=== PATIENT | male | born 1965 | race African-American/Black ===

== ENCOUNTER → 2021-01-30 | Outpatient (CLI) | payer BC ==
--- NOTE | 2021-01-30 15:46 | Diagnostic Imaging Report ---
CT Lung Screening INDICATION: 37 pack year smoking history. Current smoker. TECHNIQUE: Noncontrast, low-dose CT imaging performed according to the lung cancer screening protocol. Auto Exposure Controls were utilize during the CT exam to meet ALARA standards for radiation dose reduction. COMPARISON: None FINDINGS: Ajqj-hl-kdduhpvg centrilobular emphysema and scattered scarring. No suspicious pulmonary nodule or mass. No pleural effusion or pneumothorax. No endobronchial lesions. Normal heart size. No pericardial effusion. No mediastinal, hilar or axillary lymphadenopathy. Thyromegaly. Partially visualized cysts in both kidneys. No acute osseous findings. IMPRESSION: 1. No actionable findings. Recommend continue annual screening with low-dose chest CT in 12 months. 2. Qisj-hb-nduhcvdl emphysematous changes with scattered scarring. 3. Thyromegaly. LUNG-RADS CATEGORY:1. MODIFIER: None. Dictated by: Dictated on workstation # [id number]
== END ==
LOC: RAD 09:45
PROVIDERS: ATTEND Nurse Practitioner
DX: Z12.2 Encounter for screening for malignant neoplasm of respiratory organs (principal); J43.9 Emphysema, unspecified; E01.0 Iodine-deficiency related diffuse (endemic) goiter; F17.210 Nicotine dependence, cigarettes, uncomplicated
CPT/HCPCS: 71271

== ENCOUNTER → 2021-03-15 | Outpatient (CLI) | payer BC ==
[~2021-03-15] MED LIST: RT-ALBUTEROL SULF 2.5 MG/3 ML PRE-MIX VIAL INH ONE
== END ==
LOC: RT 03-14 09:30
PROVIDERS: ATTEND Nurse Practitioner Family
DX: Z13.83 Encounter for screening for respiratory disorder NEC (principal); J43.2 Centrilobular emphysema; F17.200 Nicotine dependence, unspecified, uncomplicated
CPT/HCPCS: 94060; 94726; 94729

== ENCOUNTER → 2021-05-12 | Outpatient (CLI) | payer BC ==
[~2021-05-12] MED LIST changes: +LIDOCAINE 1% INJ 20 ML 20 ML VIAL INJ ONE; -RT-ALBUTEROL SULF 2.5 MG/3 ML PRE-MIX VIAL INH ONE
== END ==
LOC: RAD 11:00
PROVIDERS: ATTEND Nurse Practitioner
DX: E01.0 Iodine-deficiency related diffuse (endemic) goiter (principal); E04.2 Nontoxic multinodular goiter

== ENCOUNTER → 2022-01-31 | Outpatient (CLI) | payer OTHER ==
--- NOTE | 2022-01-31 12:51 | Diagnostic Imaging Report ---
EXAMINATION: CT chest without contrast (lung screening). TECHNIQUE: Multiple contiguous axial images were obtained through the chest without the use of intravenous contrast according to lung cancer screening protocol. All CT scans use one or more of the following dose optimizing techniques: automated exposure control, MA and/or KvP adjustment based on patient size and exam type or iterative reconstruction. HISTORY: 38 pack year history of smoking. COMPARISON: 01/30/2021 FINDINGS: Thyroid: Margin of the thyroid gland. Mediastinum: Heart size is normal without significant pericardial effusion. The aorta is normal in caliber. No suspicious lymphadenopathy. Lungs and airways: The lungs are clear without consolidation, pleural effusion, or pneumothorax. No suspicious pulmonary nodule. Mild bronchial wall thickening. Upper abdomen: Renal cysts are present which require no follow-up. Musculoskeletal: No suspicious osseous lesion or compression fracture. IMPRESSION: 1. No suspicious pulmonary nodules. Recommend continued annual low-dose CT screening. LUNG-RADS CATEGORY: 1 MODIFIER: None Dictated by: Dictated on workstation # [id number]
== END ==
LOC: RAD 11:37
PROVIDERS: ATTEND Nurse Practitioner Family
DX: Z12.2 Encounter for screening for malignant neoplasm of respiratory organs (principal); J43.2 Centrilobular emphysema; F17.210 Nicotine dependence, cigarettes, uncomplicated
CPT/HCPCS: 71271

== ENCOUNTER 2022-05-01 16:17 | Emergency (ER) | payer OTHER ==
[~2022-05-01] VITALS: Ht 167 cm; Wt 51.0 kg
--- NOTE | 2022-05-01 16:53 | ED Integumentary General ---
General Chief Complaint: Laceration Stated Complaint: LEG INJURY Nursing Triage Note: ARRIVED VIA AMB TO ROOM 03 WITH A SIGNIFICANT LACERATION TO RIGHT UPPER LEG FROM A CIRCULAR SAW. AT THIS TIME PT REFUSES AN IV AND REFUSES A TETANUS SHOT. DR KNOX BROUGHT TO THE ROOM. Source: patient Exam Limitations: no limitations (LIZ KNOX MD) History of Present Illness Date Seen by Provider: May 01, 2022 Time Seen by Provider: 16:45 Initial Comments Patient is a 56-year-old male who presents to the emergency department with a large laceration down the right lateral thigh. He was using a circular saw and it went onto his thigh. He states his last tetanus shot was exactly 5 years ago. Moderate pain. No distal numbness tingling or weakness. Intact function to the lower extremity able to flex and extend the right lower leg without difficulty. Normal sensation. He is not a diabetic. He declines an IV and declines updating tetanus. No other complaints of illness or injury All other review of systems reviewed and negative except as stated. Timing/Duration: just prior to arrival Severity: severe Location: extremities (RLE) Possible Cause: other (circular saw) Associated Symptoms: denies symptoms (LIZ KNOX MD) Allergies and Home Medications Allergies Coded Allergies: No Known Drug Allergies (Unverified , 03/15/21) Patient Home Medication List Home Medication List Reviewed: Yes (LIZ KNOX MD) Home Medication List Reviewed: Yes (DELORES KENYON) Cephalexin (Cephalexin) 500 Mg Tablet, 500 MG PO QID Prescribed by: SILVIO RYDER on 05/01/222132 Hydrocodone/Acetaminophen (Hydrocodone-Acetamin 5-325 mg) 5 Mg-325 Mg Tablet, 1 TAB PO Q4H PRN for PAIN-MODERATE (5-7) Prescribed by: SILVIO RYDER on 05/01/222133 Review of Systems Review of Systems Constitutional: see HPI EENTM: no symptoms reported Respiratory: no symptoms reported Cardiovascular: no symptoms reported Musculoskeletal: other (leg pain) Skin: other (laceration) Psychiatric/Neurological: Anxiety (LIZ KNOX MD) All Other Systems Reviewed Negative Unless Noted: Yes (LIZ KNOX MD) Past Xloojfa-Oocylj-Iqlore Hx Patient Social History Smoking Status: Current Everyday Smoker Substance use?: Yes Substance type: Marijuana Alcohol Use?: Yes Alcohol Frequency: Couple times a week (LIZ KNOX MD) Physical Exam Vital Signs Vital Signs - First Documented 05/01/22 16:35 Temp 36.3 Pulse 101 Resp 16 B/P (MAP) 143/97 (112) Pulse Ox 100 O2 Delivery Room Air (DELORES KENYON) Vital Signs Capillary Refill : Less Than 3 Seconds (LIZ KNOX MD) General Appearance: WD/WN, mild distress HEENT: PERRL/EOMI Cardiovascular: regular rate, rhythm Respiratory: lungs clear, normal breath sounds, no respiratory distress, no accessory muscle use Extremities: normal range of motion, no pedal edema Neurologic/Psychiatric: alert, normal mood/affect, oriented x 3, other (no motor or sensory deficit) Skin: normal color, warm/dry, other (16 cm laceration down the anterior lateral aspect of the distal right thigh. Laceration involves what appears to be the muscle belly of the rectus femoris. Some active bleeding noted no pulsatile bleeding. No obvious foreign body.) (LIZ KNOX MD) Skin: other (16 cm laceration down the anterior lateral aspect of the distal right thigh. Laceration involves what appears to be the muscle belly of the rectus femoris. Some active bleeding noted no pulsatile bleeding. No obvious foreign body.) (DELORES KENYON) Procedures/Interventions Wound Location: Lower Extremities Other Wound Location right leg Wound Length (cm): 16 Wound's Depth, Shape: into muscle, irregular, contused tissue, sub Q Wound Explored: contaminated Irrigated w/ Saline (ccs): 6000 Betadine Prep?: Yes Anesthesia: 1% Lidocaine Volume Anesthetic (ccs): 30 Wound Debrided: minimal Suture: Ethlion, Vicryl Suture Size: 2-0, 4-0 Number of Sutures: 31 Layer Closure?: 4 Number Deep Layer Sutures: 3 Sterile Dressing Applied?: Yes Progress 8 Vicryl 2-0 sutures were placed (DELORES KENYON) Progress/Results/Core Measures Results/Orders My Orders Orders - DELORES KENYON Lidocaine 1% Inj 20 Ml (Xylocaine 1% Inj (05/01/22 18:00) Cephalexin Capsule (Keflex Capsule) (05/01/22 21:30) (DELORES KENYON) Medications Given in ED (DELORES KENYON) Vital Signs/I&O 05/01/22 05/01/22 05/01/22 16:35 17:17 21:52 Temp 36.3 36.3 36.6 Pulse 101 89 Resp 16 16 B/P (MAP) 143/97 (112) 135/89 Pulse Ox 100 100 O2 Delivery Room Air Room Air (DELORES KENYON) Blood Pressure Mean: 112 Departure Communication (PCP) Patient with a extensive laceration to the right leg above the right knee. Laceration measures about 16 cm that is jagged that tracks from the center of the mid thigh to the right lateral knee. X-rays was negative for fracture. Patient believes he is up-to-date on his tetanus but once again it was recommended for a updated tetanus as he was not sure but patient refused anything IM or IV. Recommended a dose of Ancef but patient once again refused anything IV or IM.. Rectus femoris muscle involvement with a 2 to 3 cm laceration through the joint capsule to the right lateral knee. Took over care from Dr. Knox for repair of the laceration. General surgery was contacted before I took over care regarding the laceration secondary for concerns of contaminated wound needing OR irrigation and repair. It was thought that this could be repaired here in the ER vs going to the OR. Prepped the laceration and right leg in a sterile fashion. Extensive irrigation up to 5000 mls of normal saline with Shur-Clens. Sterile gloves were used and prepped the right leg with iodine and draped in a sterile fashion. Took multiple attempts before patient would allow me to use lidocaine. Used up to 30 ml of lidocaine to anesthetize the laceration. Used 8 2-0 absorbable Vicryl single stitch to repair the surface of the joint capsule. Jagged laceration through the vastus lateralis and rectus femoris. 10 2-0 Vicryl sutures were placed by horizontal mattress into the muscle tissue to provide stability as this has high tension. Used 2-0 Vicryl running stitches to approximate the fascia and adipose. Recommended sallie patient refused sallie. I was able to use 4-0 Ethilon single stitch through the entire length of the laceration. Attempted to use a stronger stitch of 2-0 but patient states this hurt too much and attempted to use more lidocaine but patient refused. Successful closure but concern due to the jagged edge that approximation may be compromised. Had to perform some debridement to help approximate the tissue. Patient did agree to oral Keflex here and will discharge with Keflex prophylactically. I Did discharge with pain medication. Brandon wrap was applied over the wound. Patient was placed in a knee immobilizer and provided crutches. Discussed the importance for following up with orthopedic within 1 week for reevaluation. Discussed healing may take up to 6 to 12 weeks. The sutures that are superficial will need to be removed in 2 weeks. I would prefer patient to follow-up with orthopedic in that time regarding this due to the extensive repair of his leg. This was provided in discharge. Discussed with patient if any redness or swelling or increase in size or pain he needs to return back to ED. (DELORES KENYON) Impression Primary Impression: Leg laceration Disposition: 01 HOME, SELF-CARE Condition: Stable Departure-Patient Inst. Decision time for Depature: 21:32 (DELORES KENYON) Referrals: [facility] (PCP/Family) Primary Care Physician THONY TODD MD Patient Instructions: Laceration Repair With Stitches ED Add. Discharge Instructions: Need to remove the sutures in 14 days. Need to follow-up with orthopedic in 1 week for reevaluation. If increased redness or swelling to return back to ED All discharge instructions reviewed with patient and/or family. Voiced under standing. Scripts Hydrocodone/Acetaminophen (Hydrocodone-Acetamin 5-325 mg) 5 Mg-325 Mg Tablet 1 TAB PO Q4H PRN for PAIN-MODERATE (5-7), #12 TAB Prov: DELORES KENYON 05/01/22 Cephalexin (Cephalexin) 500 Mg Tablet 500 MG PO QID for 7 Days, #28 TAB Prov: DELORES KENYON 05/01/22 Work/School Note: Work Release Form Date Seen in the Emergency Department: May 01, 2022 Return to Work: May 16, 2022 ATTENDING PHYSICIAN NOTE: I WAS PHYSICALLY PRESENT ER PHYSICIAN, BUT I WAS NOT INVOLVED IN ANY DECISION MAKING OR ANY CARE OF THIS PATIENT, AND I AM NOT COLLABORATING PHYSICIAN. (RORY JUSTICE DO) LIZ KNOX MD May 01, 2022 16:53 DELORES KENYON May 01, 2022 21:34 RORY JUSTICE DO May 02, 2022 05:33
[2022-05-01] MEDS ORDERED: LIDOCAINE 1% INJ 20 ML VIAL INJ ONE ×2 (17:00→18:00)
--- NOTE | 2022-05-01 17:12 | Diagnostic Imaging Report ---
EXAMINATION: Right femur, two or more views. HISTORY: Circular saw injury. COMPARISON: None available. FINDINGS: There are vascular calcifications. There is cortical irregularity of the distal right femur concerning for a fracture. This is at the edge of the [id number]-[id number]. There also appears to be gas in the soft tissues. IMPRESSION: 1. Cortical irregularity and soft tissue gas in the distal right femur concerning for a fracture and soft tissue injury; dedicated knee radiographs recommended. Dictated by: Dictated on workstation # [id number]
--- NOTE | 2022-05-01 17:37 | Diagnostic Imaging Report ---
INDICATION: Circular saw injury to the right thigh. TIME OF EXAM: 5:17 p.m. FINDINGS: Three views of the right knee were obtained. There appears to be a soft tissue injury of the anterior tissues with soft tissue gas present. Alignment at the knee is normal. The femur as well as the proximal tibia and fibula appear to be intact. No fractures are seen. No definite radiopaque soft tissue foreign bodies are identified. IMPRESSION: Soft tissue injury. No acute bony abnormality is detected. Dictated by: Dictated on workstation # [id number]
[2022-05-01] MEDS ORDERED: LORazepam 1 MG (ATIVAN) TAB PO ONE (18:00)
[2022-05-01] MEDS ORDERED: CEPHALEXIN 250 MG (KEFLEX) CAP PO STA (21:30)
[2022-05-01] MEDS ORDERED: ACHD5005 PO (21:33)
[2022-05-01] MEDS ORDERED: CEPH500T PO (21:33)
[2022-05-01 21:52] VITALS: BP 135/89
== END 2022-05-01 21:55 | disposition home or self-care (01) ==
LOC: EDUNIT# 16:17 → ER 16:19
DX: S71.111A Laceration without foreign body, right thigh, initial encounter (principal); F17.200 Nicotine dependence, unspecified, uncomplicated; Z28.310 Unvaccinated for COVID-19; W31.2XXA Contact with powered woodworking and forming machines, initial encounter
CPT/HCPCS: 12035; 73552; 73562; 99283; L1830